=== PATIENT | female | born 1945 | race Caucasian/White ===

== ENCOUNTER 2022-10-08 12:45 | Inpatient (IN) | payer MEDICARE ==
[~2022-10-08 12:45] MED LIST: LIDOCAINE 1% INJ 10MG/ML (5 ML VIAL-PF) SQ ONE; MIDAZOLAM 2 MG/2 ML VIAL IVP ONE; fentaNYL (PF) 50 MCG/1 ML VIAL IVP ONE
[2022-10-08] MEDS ORDERED: NITROGLYCERIN OINT 1 INCH/GM PACKET TOPICAL STA (13:04)
[2022-10-08] MEDS ORDERED: ASPIRIN 81 MG PO STA (13:04)
--- NOTE | 2022-10-08 13:11 | ED ---
General Adult HPI - General Chief complaint: Chest Pain Stated complaint: Chest pain Time Seen by Provider: 10/08/22 12:50 Source: patient, EMS, RN notes reviewed Mode of arrival: EMS Limitations: no limitations - History of Present Illness Initial comments: Patient is a pleasant 76-year-old female presenting to the emergency department concerns for chest discomfort. Onset of symptoms was this morning. Patient had indigestion feeling in her chest without radiation. No associated dyspnea, nausea, or diaphoresis. Patient was seen at the primary care physician and sent to the ER. No history of similar symptoms previously. - Related Data Home Medications Medication Instructions Recorded Confirmed Levothyroxine Sodium [Synthroid] 112 mcg PO HS 12/24/14 04/04/15 Oxybutynin Xl [Ditropan Xl] 10 mg PO QAM 12/24/14 04/04/15 hydroCHLOROthiazide [Hydrodiuril] 25 mg PO DAILY 12/24/14 04/02/15 Cholecalciferol [Vitamin D3] 1,000 units PO QAM 04/02/15 04/02/15 L.acidoph,Paracasei, B.lactis 1 each PO BID 04/02/15 04/02/15 [Probiotic] Sertraline HCl 100 mg PO BID 04/02/15 04/04/15 Previous Rx's Medication Instructions Recorded Ibuprofen [Motrin] 600 mg PO Q6HR PRN #30 tab 12/24/14 Allergies Allergy/AdvReac Type Severity Reaction Status Date / Time fluoxetine HCl [From Prozac] Allergy Severe headache Verified 04/02/15 09:57 dust Allergy Itching Uncoded 04/02/15 09:57 Review of Systems ROS Statement: Those systems with pertinent positive or pertinent negative responses have been documented in the HPI. ROS Other: All systems not noted in ROS Statement are negative. Constitutional: Denies: fever Eyes: Denies: eye pain ENT: Denies: ear pain Respiratory: Denies: dyspnea Cardiovascular: Reports: as per HPI, chest pain Endocrine: Denies: fatigue Musculoskeletal: Denies: back pain Past Medical History Past Medical History: Hyperlipidemia, Hypertension, Thyroid Disorder Additional Past Medical History / Comment(s): MIGRAINES History of Any Multi-Drug Resistant Organisms: None Reported Past Surgical History: Hysterectomy, Orthopedic Surgery Past Psychological History: No Psychological Hx Reported Smoking Status: Former smoker Past Alcohol Use History: Occasional, Rare Past Drug Use History: None Reported General Exam Limitations: no limitations General appearance: alert, in no apparent distress Head exam: Present: normocephalic Eye exam: Present: normal appearance Neck exam: Present: normal inspection Respiratory exam: Present: normal lung sounds bilaterally. Absent: chest wall tenderness Cardiovascular Exam: Present: bradycardia, normal heart sounds Expanded Peripheral pulses: 2+: Radial (R), Radial (L), Dorsalis Pedis (R), Dorsalis Pedis (L) GI/Abdominal exam: Present: soft. Absent: tenderness Extremities exam: Present: normal inspection. Absent: pedal edema, calf tender ness Neurological exam: Present: alert Psychiatric exam: Present: normal affect, normal mood Skin exam: Present: normal color Course Vital Signs 10/08/22 12:50 Temperature 97.1 F L Pulse Rate 49 L Respiratory 20 Rate Blood Pressure 139/63 O2 Sat by Pulse 100 Oximetry EKG Findings - EKG Results: EKG: interpreted by ERMD (Inferior lateral T wave inversion), sinus rhythm, normal axis, normal QRS EKG shows: bradycardia Medical Decision Making - Medical Decision Making Was pt. sent in by a medical professional or institution (, PA, MACHINE INSPECTOR, urgent care, hospital, or penitentiary...) When possible be specific @ -No Did you speak to anyone other than the patient for history (EMS, parent, family, police, friend...)? What history was obtained from this source @ -No Did you review nursing and triage notes (agree or disagree)? Why? @ -I reviewed and agree with nursing and triage notes Were old charts reviewed (outside hosp., previous admission, EMS record, old EKG, old radiological studies, urgent care reports/EKG's, penitentiary records)? Report findings @ -No old charts were reviewed Differential Diagnosis (chest pain, altered mental status, abdominal pain women, abdominal pain men, vaginal bleeding, weakness, fever, dyspnea, syncope, headache, dizziness, GI bleed, back pain, seizure, CVA, palpatations, mental health, musculoskeletal)? @ -Differential Chest Pain: Stable Angina, Unstable Angina, STEMI, NSTEMI Aortic Dissection, Pneumothorax, Musculoskeletal, Esophageal Spasm GERD, Cholecystitis, Pancreatitis, Zoster, this is not meant to be an all-inclusive list. EKG interpreted by me (3pts min.). @ -As above X-rays interpreted by me (1pt min.). @ -Chest x-ray shows no acute process CT interpreted by me (1pt min.). @ -None done U/S interpreted by me (1pt. min.). @ -None done What testing was considered but not performed or refused? (CT, X-rays, U/S, labs)? Why? @ -None What meds were considered but not given or refused? Why? @ -None Did you discuss the management of the patient with other professionals (professionals i.e. , PA, MACHINE INSPECTOR, lab, RT, psych nurse, child welfare social worker, community relations director, teacher, anti air warfare operations officer, manager rn case)? Give summary @ -Case was discussed with Dr. Valerio who will admit covering Dr. Hatifeld Was smoking cessation discussed for >3mins.? @ -No Was critical care preformed (if so, how long)? @ -31 minutes critical care Were there social determinants of health that impacted care today? How? (Homelessness, low income, unemployed, alcoholism, drug addiction, transportation, low edu. Level, literacy, decrease access to med. care, detention, rehab)? @ -No Was there de-escalation of care discussed even if they declined (Discuss DNR or withdrawal of care, Hospice)? DNR status @ -No What co-morbidities impacted this encounter? (DM, HTN, Smoking, COPD, CAD, Cancer, CVA, ARF, Chemo, Hep., AIDS, mental health diagnosis, sleep apnea, morbid obesity)? @ -None Was patient admitted / discharged? Hospital course, mention meds given and route, prescriptions, significant lab abnormalities, going to OR and other pertinent info. @ -Patient reevaluated and resting comfortably in bed. Patient is updated on results and plan. Patient does have chest discomfort with EKG changes and mild elevation of troponin. Patient will be admitted with heparin and cardiac consult . Admission orders written. Undiagnosed new problem with uncertain prognosis? @ -No Drug Therapy requiring intensive monitoring for toxicity (Heparin, Nitro, In sulin, Cardizem)? @ -No Were any procedures done? @ -No Diagnosis/symptom? @ nstemi Acute, or Chronic, or Acute on Chronic? @ acute ] Uncomplicated (without systemic symptoms) or Complicated (systemic symptoms)? @ -default Side effects of treatment? @ -No Exacerbation, Progression, or Severe Exacerbation? @ -No Poses a threat to life or bodily function? How? (Chest pain, [place], [place], pneumonia, PE, COPD, DKA, ARF, appy, cholecystitis, CVA, Diverticulitis, Homicidal, Suicidal, threat to staff... and all critical care pts) @ -Myocardial infarction does pose a threat to life and heart function - Lab Data Result diagrams: 10/08/22 13:13 10/08/22 13:13 Lab Results 10/08/22 10/08/22 10/08/22 Range/Units 13:13 13:13 13:13 WBC 6.2 (3.8-10.6) k/uL RBC 4.17 (3.80-5.40) m/uL Hgb 13.4 (11.4-16.0) gm/dL Hct 38.8 (34.0-46.0) % MCV 93.0 (80.0-100.0) fL MCH 32.2 (25.0-35.0) pg MCHC 34.6 (31.0-37.0) g/dL RDW 12.7 (11.5-15.5) % Plt Count 131 L (150-450) k/uL MPV 8.4 Neutrophils % 60 % Lymphocytes % 26 % Monocytes % 5 % Eosinophils % 7 % Basophils % 1 % Neutrophils # 3.7 (1.3-7.7) k/uL Lymphocytes # 1.6 (1.0-4.8) k/uL Monocytes # 0.3 (0-1.0) k/uL Eosinophils # 0.4 (0-0.7) k/uL Basophils # 0.0 (0-0.2) k/uL PT 10.4 (9.0-12.0) sec INR 1.0 (<1.2) APTT 20.9 L (22.0-30.0) sec Sodium 137 (137-145) mmol/L Potassium 4.8 (3.5-5.1) mmol/L Chloride 105 (98-107) mmol/L Carbon Dioxide 26 (22-30) mmol/L Anion Gap 6 mmol/L BUN 27 H (7-17) mg/dL Creatinine 0.79 (0.52-1.04) mg/dL Est GFR (CKD-EPI)AfAm 85 (>60 ml/min/1.73 sqM) Est GFR (CKD-EPI)NonAf 74 (>60 ml/min/1.73 sqM) Glucose 101 H (74-99) mg/dL Calcium 9.5 (8.4-10.2) mg/dL Magnesium 2.0 (1.6-2.3) mg/dL Total Bilirubin 0.6 (0.2-1.3) mg/dL AST 43 H (14-36) U/L ALT 45 H (4-34) U/L Alkaline Phosphatase 82 (38-126) U/L Troponin I (0.000-0.034) ng/mL Total Protein 7.9 (6.3-8.2) g/dL Albumin 4.2 (3.5-5.0) g/dL Lipase 39 (23-300) U/L 10/08/22 Range/Units 13:13 WBC (3.8-10.6) k/uL RBC (3.80-5.40) m/uL Hgb (11.4-16.0) gm/dL Hct (34.0-46.0) % MCV (80.0-100.0) fL MCH (25.0-35.0) pg MCHC (31.0-37.0) g/dL RDW (11.5-15.5) % Plt Count (150-450) k/uL MPV Neutrophils % % Lymphocytes % % Monocytes % % Eosinophils % % Basophils % % Neutrophils # (1.3-7.7) k/uL Lymphocytes # (1.0-4.8) k/uL Monocytes # (0-1.0) k/uL Eosinophils # (0-0.7) k/uL Basophils # (0-0.2) k/uL PT (9.0-12.0) sec INR (<1.2) APTT (22.0-30.0) sec Sodium (137-145) mmol/L Potassium (3.5-5.1) mmol/L Chloride (98-107) mmol/L Carbon Dioxide (22-30) mmol/L Anion Gap mmol/L BUN (7-17) mg/dL Creatinine (0.52-1.04) mg/dL Est GFR (CKD-EPI)AfAm (>60 ml/min/1.73 sqM) Est GFR (CKD-EPI)NonAf (>60 ml/min/1.73 sqM) Glucose (74-99) mg/dL Calcium (8.4-10.2) mg/dL Magnesium (1.6-2.3) mg/dL Total Bilirubin (0.2-1.3) mg/dL AST (14-36) U/L ALT (4-34) U/L Alkaline Phosphatase (38-126) U/L Troponin I 0.077 H* (0.000-0.034) ng/mL Total Protein (6.3-8.2) g/dL Albumin (3.5-5.0) g/dL Lipase (23-300) U/L Critical Care Time Critical Care Time: Yes Total Critical Care Time: 31 Disposition Clinical Impression: Acute non-ST elevation myocardial infarction (NSTEMI) Disposition: ADMITTED IP TO THIS [facility] Is patient prescribed a controlled substance at d/c from ED?: No Referrals: None,Stated [REFERRING] - 1-2 days Time of Disposition: 14:44
[2022-10-08 13:33] LABS: Basophils % (A) 1 %; Eosinophils # (A) 0.4 k/uL (0-0.7); Eosinophils % (A) 7 %; HCT 38.8 % (34.0-46.0); HGB 13.4 gm/dL (11.4-16.0); Lymphocytes # (A) 1.6 k/uL (1.0-4.8); Lymphocytes % (A) 26 %; MCH 32.2 pg (25.0-35.0); MCHC 34.6 g/dL (31.0-37.0); Mean Platelet Volume 8.4; Monocytes # (A) 0.3 k/uL (0-1.0); Monocytes % (A) 5 %; Neutrophils # (A) 3.7 k/uL (1.3-7.7); Neutrophils % (A) 60 %; Platelet Count 131 k/uL (150-450); RBC 4.17 m/uL (3.80-5.40); RDW 12.7 % (11.5-15.5); WBC 6.2 k/uL (3.8-10.6)
[2022-10-08 13:44] LABS: Prothrombin Time 10.4 sec (9.0-12.0)
[2022-10-08 13:56] LABS: ALT 45 U/L (4-34); African American GFR (CKD) 85 (>60 ml/min/1.73 sqM); Albumin 4.2 g/dL (3.5-5.0); Anion Gap 6 mmol/L; Blood Urea Nitrogen 27 mg/dL (7-17); Calcium 9.5 mg/dL (8.4-10.2); Carbon Dioxide 26 mmol/L (22-30); Chloride 105 mmol/L (98-107); Glucose 101 mg/dL (74-99); Lipase 39 U/L (23-300); Non-African American GFR(CKD) 74 (>60 ml/min/1.73 sqM); Sodium 137 mmol/L (137-145); Total Bilirubin 0.6 mg/dL (0.2-1.3); Total Protein 7.9 g/dL (6.3-8.2)
[2022-10-08 14:06] LABS: AST 43 U/L (14-36); Alkaline Phosphatase 82 U/L (38-126); Potassium 4.8 mmol/L (3.5-5.1)
--- NOTE | 2022-10-08 14:09 | XR ---
EXAMINATION TYPE: XR chest 2V DATE OF EXAM: 10/08/2022 2:02 PM COMPARISON: None TECHNIQUE: XR chest 2V Frontal and lateral views of the chest. CLINICAL INDICATION:Female, 76 years old with history of Chest Pain; FINDINGS: Lungs/Pleura: There is no evidence of pleural effusion, focal consolidation, or pneumothorax. Pulmonary vascularity: Unremarkable. Heart/mediastinum: Cardiomediastinal silhouette is unremarkable. Atherosclerotic calcifications are seen in the aorta. Musculoskeletal: No acute osseous pathology. Mild multilevel degenerative changes of the thoracic spi ne. IMPRESSION: No acute cardiopulmonary disease/process.
[2022-10-08 14:13] LABS: Partial Thromboplastin Time 20.9 sec (22.0-30.0)
[2022-10-08] MEDS ORDERED: NITROGLYCERIN SL TABS 0.4 MG TAB SUBLINGUAL PRN ×2 (14:45→19:49)
[2022-10-08] MEDS ORDERED: HEPARIN SOD,PORK IN 0.45% NACL 25,000 UNIT in 0.45% NACL 1 250ML.BAG IV SCH (14:45)
[2022-10-08] MEDS ORDERED: HEPARIN SODIUM 1,000 UN/ML (10ML VL) IV ONE (14:45)
[2022-10-08] MEDS ORDERED: HEPARIN SODIUM 1,000 UN/ML (10ML VL) ONE (18:45)
[2022-10-08] MEDS ORDERED: fentaNYL (PF) 50 MCG/ML 2 ML AMP ONE (18:45)
[2022-10-08] MEDS ORDERED: ATORVASTATIN 40 MG TAB PO STA (18:46)
[2022-10-08] MEDS ORDERED: LIDOCAINE 1% INJ 10MG/ML (20 ML MDV) ONE (18:51)
[2022-10-08] MEDS ORDERED: VERAPAMIL SYRINGE (5 MG/10 ML) INTRAARTER ONE (18:55)
[2022-10-08] MEDS ORDERED: SODIUM CHLORIDE 0.9% 1,000 ML IV ONE (18:56)
[2022-10-08] MEDS: HEPARIN SODIUM 1,000 UN/ML (10ML VL) IV ONE ×2 (18:59→19:13)
[2022-10-08] MEDS ORDERED: CLOPIDOGREL 75 MG TAB ONE (19:13)
[2022-10-08] MEDS ORDERED: CLOPIDOGREL 75 MG TAB PO ONE (19:18)
[2022-10-08] MEDS ORDERED: NITROGLYCERIN 1000MCG/10ML SYRINGE INTRACORON ONE (19:25)
[2022-10-08] MEDS ORDERED: MAG HYDROX/AL HYDROX/SIMETH 30 ML CUP PO PRN (19:49)
[2022-10-08] MEDS ORDERED: ATROPINE SULFATE 0.1 MG/ML 10ML SYRINGE IV PRN (19:49)
[2022-10-08] MEDS ORDERED: ZOLPIDEM 5 MG TAB PO PRN (19:49)
[2022-10-08] MEDS ORDERED: RX INFO: IV CONTRAST WAS GIVEN 1 EACH MISC MISCELLANE PRN (19:49)
--- NOTE | 2022-10-08 19:49 | P.PCN ---
Date of Procedure: 10/08/22 Operative Findings: PERCUTANEOUS CORONARY INTERVENTION Performing physician Nabeel Lynn M.D. Procedure Performed: 1. Successful stenting of the distal RCA using 3.0 x 15 mm Xience drug-eluting stent with an excellent angiographic results. 2. iFR of the left anterior descending artery and that came in to be nonischemic/normal flow limiting Indication: Chest discomfort concerning for angina 76-year-old female patient who was seen by Dr. Isaac and underwent a heart catheterization and that revealed critical disease involving the distal RCA with intermediate to severe disease involving the mid LAD. Approach: Right radial artery Complications: None Level of Sedation: Moderate with a sedation length of 32 minutes Procedure Discussion: After diagnostic heart catheterization was performed that revealed critical disease involving the RCA and intermediate severe disease involving the LAD with decided to proceed with intervention on the RCA first. Anticoagulation was initiated using heparin and continuous SVT monitoring. Subsequently attempted engaging the RCA using 2.75 guiding catheter was unsuccessful. Subsequently I was able to engage the RCA using a JR4 guiding catheter. It using a run-through wire. Subsequently predilatation was performed using 2.5 mm balloon deployed 3.0 x 15 mm stent where the stent was positioned under fluoroscopy guidance and deployed under fluoroscopy guidance. It was postdilated using 3.5 mm noncompliant balloon was Angiogram showing excellent angiographic results was ARANZA-3 flow and the procedure was completed was no complication. After that I decided to pursue with an FFR of the LAD. After resuming equalizing between the Doppler wire and guiding cath which was JL 3.5 guiding catheter and after that I did engage the left main and wire the LAD. After that I did perform iFR of the LAD and that came in to be nonischemic and 0.91 and 0.92 and 0.93. At that point I decided to stop. Postprocedure Management: 1. Dual antiplatelet therapy including aspirin and Plavix for at least 6 month 2. Aggressive cholesterol control 3. Risk factors modification
[2022-10-08] MEDS ORDERED: IOPAMIDOL-370 100ML BTL INJ ONE (20:00)
[2022-10-08] MEDS ORDERED: SODIUM CHLORIDE 0.9% 1,000 ML in EMPTY BAG 1 BAG IV SCH (20:00)
[2022-10-08] MEDS: NITROGLYCERIN OINT 1 INCH/GM PACKET TOPICAL SCH ×2 (20:13→23:14)
[2022-10-08] MEDS: ATORVASTATIN 80 MG TAB PO SCH (20:33)
[2022-10-08] MEDS ORDERED: LEVOTHYROXINE 112 MCG TAB PO SCH (21:00)
--- NOTE | 2022-10-08 22:17 | CONS ---
CONSULTATION HISTORY OF PRESENT ILLNESS: A 76-year-old lady with history of hypertension, dyslipidemia, who has seen Dr. Ruffin in the past, comes into hospital with symptoms of chest pain. She has had chest pressure that she describes as a burning sensation and heartburn in the left pericardial area with radiation to left arm, was seen by her primary care physician where an EKG showed sinus bradycardia with anterolateral ST-T wave changes of ischemia. The first set of troponin is slightly elevated. Subsequent troponin came back further elevated and the EKG changes have worsened somewhat compared to where they were. Her chest discomfort has improved, but given the EKG changes and the elevated troponin, I advised her to undergo cardiac catheterization for further evaluation. I have explained the risks, benefits, and alternatives. She understood and accepted. PAST MEDICAL HISTORY: Negative for coronary artery disease or congestive heart failure. MEDICATIONS: As charted. ALLERGIES: None. FAMILY HISTORY: Negative for premature coronary artery disease. SOCIAL HISTORY: Negative for current smoking, EtOH abuse, or drug abuse. REVIEW OF SYSTEMS: 14 out of 14 review of systems has been performed. Pertinents are as documented. PHYSICAL EXAMINATION: GENERAL: Comfortable at rest. VITAL SIGNS: Heart rate is 50 beats per minute, blood pressure 130/72, respiratory rate of 18. NECK: There is no jugular venous distention. Carotid upstroke is normal. There is no bruit. CHEST: Reveals good air entry bilaterally. HEART: Reveals first and second heart sounds. No gallop. No murmur. ABDOMEN: Soft, nontender. EXTREMITIES: Did not reveal edema. Peripheral pulses are felt. LABORATORY DATA: Creatinine is normal. Hemoglobin is normal. ASSESSMENT: Acute lju-RB-wnbznth elevation myocardial infarction. PLAN: I advised the patient to undergo urgent cardiac catheterization for further evaluation and treatment. MMODL / IJN: [id number] /
--- NOTE | 2022-10-08 22:41 | CC ---
CARDIAC CATHETERIZATION REPORT INDICATION: Acute wiu-EV-xoowfpk elevation [place]. PROCEDURE NOTE: After obtaining informed consent, left heart catheterization and coronary angiogram were performed via right radial artery using standard Cirilo catheters. The patient tolerated the procedure well without any obvious immediate complications. Right radial artery access was obtained using Seldinger technique. A 6-Marshallese sheath was placed. Catheters and wires were floated into the ascending aorta under fluoroscopic guidance. The patient received moderate conscious sedation. Total sedation time was 25 minutes. The patient received verapamil and heparin per protocol. FINDINGS: 1. HEMODYNAMICS: Left ventricular end-diastolic pressure is 24 mmHg. There is no significant gradient across the aortic valve. 2. LEFT VENTRICULOGRAM: Left ventriculogram is not performed. 3. ANGIOGRAPHIC DATA: a.Right coronary artery: Right coronary artery is a large dominant vessel that shows a focal 95% stenosis in the distal RCA. b.Left main coronary artery appears calcified, but is free of significant stenosis. Divides into left anterior descending coronary artery and circumflex coronary artery. c.Circumflex coronary artery is a nondominant vessel and is free of significant stenosis. d.The LAD shows 70% focal stenosis in the midportion. Vessel is calcified. CONCLUSION: Two-vessel coronary artery disease with a focal 95% stenosis involving distal RCA and a 70% stenosis involving mid LAD. PLAN: Dr. Lynn, the on-call glass melt operator, will proceed with angioplasty of the right coronary artery with or without angioplasty of LAD. MMODL / IJN: [id number] /
[2022-10-09 02:17] LABS: Chol/HDL Ratio 2.94 Ratio; LDL Cholesterol,Calculated 76.7 mg/dL (0.0-131.0)
[2022-10-09 05:02] LABS: HCT 37.3 % (34.0-46.0); HGB 12.6 gm/dL (11.4-16.0); MCH 31.8 pg (25.0-35.0); MCHC 33.9 g/dL (31.0-37.0); MCV 93.9 fL (80.0-100.0); Mean Platelet Volume 8.7; Platelet Count 129 k/uL (150-450); RBC 3.97 m/uL (3.80-5.40); RDW 13.1 % (11.5-15.5); WBC 7.5 k/uL (3.8-10.6)
[2022-10-09 05:16] LABS: ALT 42 U/L (4-34); AST 36 U/L (14-36); African American GFR (CKD) 77 (>60 ml/min/1.73 sqM); Albumin 3.6 g/dL (3.5-5.0); Alkaline Phosphatase 87 U/L (38-126); Anion Gap 6 mmol/L; Blood Urea Nitrogen 22 mg/dL (7-17); Calcium 9.1 mg/dL (8.4-10.2); Carbon Dioxide 28 mmol/L (22-30); Chloride 105 mmol/L (98-107); Glucose 100 mg/dL (74-99); Non-African American GFR(CKD) 67 (>60 ml/min/1.73 sqM); Potassium 4.2 mmol/L (3.5-5.1); Sodium 139 mmol/L (137-145); Total Bilirubin 0.4 mg/dL (0.2-1.3); Total Protein 6.9 g/dL (6.3-8.2)
[2022-10-09] MEDS: LEVOTHYROXINE 75 MCG TAB PO SCH (06:12)
[2022-10-09] MEDS: hydroCHLOROthiazide 25 MG TAB PO SCH (08:13)
[2022-10-09] MEDS: SERTRALINE 100 MG TAB PO SCH (08:14)
[2022-10-09] MEDS: CLOPIDOGREL 75 MG TAB PO SCH (08:14)
[2022-10-09] MEDS: CHOLECALCIFEROL 25 MCG (1000 IU) TABLET PO SCH (08:14)
[2022-10-09] MEDS: ASPIRIN 81 MG PO SCH (08:14)
[2022-10-09] MEDS: OXYBUTYNIN XL 5 MG TAB.ER.24 PO SCH (08:14)
[2022-10-09] MEDS ORDERED: ASPIRIN 325 MG TAB PO SCH (09:00)
[2022-10-09 09:03] LABS: Chol/HDL Ratio 3.36 Ratio; LDL Cholesterol,Calculated 48.9 mg/dL (0.0-131.0)
--- NOTE | 2022-10-09 10:47 | CA ---
Transthoracic Echo Report Name: Humera Thomas Age: 76 Gender: F : 1945 Exam Date: 10/09/2022 07:26 Exam Location: [facility] Ht (in): 63 Wt (lb): 174 Ordering Physician: Stan Vital DO Attending/Referring Phys: Bobbin Coil Winder Leonel Fernandez Procedure CPT: Indications: nstemi Cardiac Hx: Technical Quality: Fair Contrast 1: Total Dose (mL): Contrast 2: Total Dose (mL): MEASUREMENTS (Male / Female) Normal Values 2D ECHO LV Diastolic Diameter PLAX 4.5 cm 4.2 - 5.9 / 3.9 - 5.3 cm LV Systolic Diameter PLAX 3.2 cm IVS Diastolic Thickness 1.2 cm 0.6 - 1.0 / 0.6 - 0.9 cm LVPW Diastolic Thickness 1.1 cm 0.6 - 1.0 / 0.6 - 0.9 cm LV Relative Wall Thickness 0.5 RV Internal Dim ED PLAX 2.6 cm LVOT Diameter 1.9 cm Aortic Root Diameter 2.5 cm LA Systolic Diameter LX 3.0 cm 3.0 - 4.0 / 2.7 - 3.8 cm LV Diastolic Volume MOD BP 43.6 cm??? 67 - 155 / 56 - 104 cm??? LV Systolic Volume MOD BP 16.2 cm??? - 58 / 19 - 49 cm??? LV Ejection Fraction MOD BP 62.9 % >= 55 % LV Cardiac Index MOD BP 750.6 cm???/min???m??? LV Diastolic Volume MOD 4C 44.7 cm??? LV Systolic Volume MOD 4C 18.5 cm??? LV Ejection Fraction MOD 4C 58.7 % LV Cardiac Index MOD 4C 717.7 cm???/min???m??? LV Diastolic Length 4C 5.6 cm LV Systolic Length 4C 5.2 cm LV Diastolic Volume MOD 2C 41.2 cm??? LV Systolic Volume MOD 2C 12.3 cm??? LV Ejection Fraction MOD 2C 70.2 % LV Cardiac Index MOD 2C 791.3 cm???/min???m??? LV Diastolic Length 2C 5.7 cm LV Systolic Length 2C 4.5 cm LA Volume 36.7 cm??? 18 - 58 / 22 - 52 cm??? Ascending Aorta Diameter 3.2 cm DOPPLER AV Peak Velocity 159.5 cm/s AV Peak Gradient 10.2 mmHg LVOT Peak Velocity 119.1 cm/s LVOT Peak Gradient 5.7 mmHg AV Area Cont Eq pk 2.1 cm??? MV Peak Velocity 115.3 cm/s MV Peak Gradient 5.3 mmHg MV Mean Velocity 47.2 cm/s MV Mean Gradient 1.2 mmHg MV Velocity Time Integral 59.5 cm MR Peak Velocity 454.3 cm/s MR Peak Gradient 82.5 mmHg Mitral E Point Velocity 93.4 cm/s Mitral A Point Velocity 92.8 cm/s Mitral E to A Ratio 1.0 MV Deceleration Time 198.6 ms MV E' Velocity 9.3 cm/s Mitral E to MV E' Ratio 10.0 TR Peak Velocity 211.8 cm/s TR Peak Gradient 17.9 mmHg Right Ventricular Systolic Press 23.1 mmHg PV Peak Velocity 102.5 cm/s PV Peak Gradient 4.2 mmHg FINDINGS Left Ventricle Normal LV size and wall thickness. Left ventricular ejection fraction is estimated at 50-55 %. Right Ventricle Normal right ventricular size. Right Atrium Normal right atrial size. Left Atrium Normal left atrial size. Mitral Valve Structurally normal mitral valve. Mild MR. Aortic Valve Mild AV calcifiation. No aortic valve stenosis or regurgitation. Tricuspid Valve Structurally normal tricuspid valve. Mild TR. Pulmonic Valve Structurally normal pulmonic valve. Moderate PI. Pericardium Normal pericardium. Aorta Normal size aortic root and proximal ascending aorta. CONCLUSIONS Normal LV is function Mild mitral regurgitation Previewed by: Dr. Willy Isaac MD (Electronically Signed) Final Date: 09 October 2022 10:46
--- NOTE | 2022-10-09 12:37 | P.PN ---
Subjective Progress Note Date: 10/09/22 History of present illness: This is a 76-year-old female with past history of hypertension dyslipidemia tiffanie Ruffin in the office. Patient presented with chest pain with radiation to the left arm. EKG was sinus bradycardia with anterior lateral ST-T wave changes for ischemia. Patient was diagnosed with acute non-ST elevated myocardial infarction and underwent urgent cardiac catheterization with Dr. Isaac which revealed two-vessel coronary artery disease with 95% stenosis of the distal RCA and 70% stenosis involving the mid LAD. Patient subsequently underwent successful stenting of the RCA performed by Dr. Lynn. iFR of the LAD came back nonischemic. Heart rate is 53, blood pressure 137/65. Repeat blood work reveals hemoglobin 12.6, potassium 4.2, creatinine 0.86. Echocardiogram reveals normal LV function. Mild mitral regurgitation. Physical examination: Gen: This is a 76-year-old female. She is resting in bed and appears to be comfortable and in no acute distress VS: reviewed HEENT: Head is atraumatic, normocephalic. Pupils equal, round. Sclerae is anicteric. LUNGS: Clear to auscultation. No wheezes or rhonchi. No intercostal retractions. HEART: Regular rate and rhythm. EXTREMITIES: No pedal edema. NEUROLOGICAL: Patient is awake, alert and oriented x3. Assessment: Non-ST elevated myocardial infarction Coronary artery disease status post stent of the RCA Hypertension Hyperlipidemia Plan: Continue current cardiac medications. Patient has not been started on beta charmaine due to bradycardia. Patient is cleared for discharge from cardiology may follow-up with Dr. Ruffin in one week. Nurse practitioner note has been reviewed, I agree with documented findings and plan of care. Patient was seen and examined. Objective - Vital Signs Vital signs: Vital Signs Temp 97.4 F L 10/09/22 04:00 Pulse 64 10/09/22 08:00 Resp 16 10/09/22 08:00 BP 137/65 10/09/22 08:00 Pulse Ox 96 10/09/22 08:00 FiO2 Intake & Output 10/08/22 10/09/22 10/09/22 18:59 06:59 18:59 Intake Total 324.94 240 240 Balance 324.94 240 240 Weight 78.925 kg 78.925 kg Intake: IV 300 Intake, IV Titration 24.94 Amount Heparin Sod,Pork in 0.45% 24.94 NaCl 25,000 unit In 0.45 % NaCl 1 250ml.bag @ 12 UNITS/KG/HR 9.471 mls/hr IV .Q24H [facility] Rx#: [id number] Oral 240 240 Other: Voiding Method Toilet # Voids 1 - Labs CBC & Chem 7: 10/09/22 04:38 10/09/22 04:38 Labs: Abnormal Lab Results - Last 24 Hours (Table) 10/08/22 10/08/22 10/08/22 Range/Units 13:13 13:13 13:13 Plt Count 131 L (150-450) k/uL APTT 20.9 L (22.0-30.0) sec BUN 27 H (7-17) mg/dL Glucose 101 H (74-99) mg/dL AST 43 H (14-36) U/L ALT 45 H (4-34) U/L Troponin I (0.000-0.034) ng/mL Triglycerides (0.00-149.00) mg/dL VLDL Cholesterol, Calc (5.00-40.00) mg/dL TSH (0.465-4.680) mIU/L 10/08/22 10/08/22 10/08/22 Range/Units 13:13 14:57 20:36 Plt Count (150-450) k/uL APTT (22.0-30.0) sec BUN (7-17) mg/dL Glucose (74-99) mg/dL AST (14-36) U/L ALT (4-34) U/L Troponin I 0.077 H* 0.125 H* 0.256 H* (0.000-0.034) ng/mL Triglycerides (0.00-149.00) mg/dL VLDL Cholesterol, Calc (5.00-40.00) mg/dL TSH (0.465-4.680) mIU/L 10/08/22 10/09/22 10/09/22 Range/Units 20:36 04:38 04:38 Plt Count 129 L (150-450) k/uL APTT >200.0 H* (22.0-30.0) sec BUN 22 H (7-17) mg/dL Glucose 100 H (74-99) mg/dL AST (14-36) U/L ALT 42 H (4-34) U/L Troponin I (0.000-0.034) ng/mL Triglycerides 268.00 H (0.00-149.00) mg/dL VLDL Cholesterol, Calc 53.60 H (5.00-40.00) mg/dL TSH 0.344 L (0.465-4.680) mIU/L
[2022-10-09 12:56] VITALS: BMI 30.8
--- NOTE | 2022-10-09 13:20 | P.HPIM ---
History of Present Illness H&P Date: 10/08/22 History of present illness; patient is 76-year-old lady with past medical histor y significant for hypothyroidism, hypertension presented to the ER because of chest discomfort that woke up her this morning. Patient stated that she was all right this morning when she started noticing that there was feeling of indigestion in the center of her chest, nonradiating, no aggravating or relieving factors associated with chest pressure. Denies any shortness of breath. Denies any nausea or vomiting. Because of chest pressure, patient went to her PCP sent her to the ER Initial lab work done in the ER showed WBC 6.2, hemoglobin 13.4, platelet count 131, sodium 137, potassium 4.8, BUN 27, creatinine 0.79, troponin 0.077 Chest x-ray done in the ER showed no acute cardiac process She admitted to medicine service REVIEW OF SYSTEMS: CONSTITUTIONAL: No fever, no malaise, no fatigue. HEENT: No recent visual problems or hearing problems. Denied any sore throat. CARDIOVASCULAR as mentioned in HPI PULMONARY: as mentioned in HPI GASTROINTESTINAL: No diarrhea, no nausea, no vomiting, no abdominal pain. NEUROLOGICAL: No headaches, no weakness, no numbness. HEMATOLOGICAL: Denies any bleeding or petechiae. GENITOURINARY: Denies any burning micturition, frequency, or urgency. MUSCULOSKELETAL/RHEUMATOLOGICAL: Denies any joint pain, swelling, or any muscle pain. ENDOCRINE: Denies any polyuria or polydipsia. The rest of the 14-point review of systems is negative. PHYSICAL EXAMINATION: GENERAL: The patient is alert and oriented x3, not in any acute distress. Well developed, well nourished. HEENT: Pupils are round and equally reacting to light. EOMI. No scleral icterus. No conjunctival pallor. Normocephalic, atraumatic. No pharyngeal erythema. No thyromegaly. CARDIOVASCULAR: S1 and S2 present. No murmurs, rubs, or gallops. PULMONARY: Chest is clear to auscultation, no wheezing or crackles. ABDOMEN: Soft, nontender, nondistended, normoactive bowel sounds. No palpable organomegaly. MUSCULOSKELETAL: No joint swelling or deformity. EXTREMITIES: No cyanosis, clubbing, or pedal edema. NEUROLOGICAL: Gross neurological examination did not reveal any focal deficits. SKIN: No rashes. Assessment and plan nSTEMI Hypertension Hypothyroidism Monitor vital signs Monitor CBC Monitor CMP Continue telemetry monitoring Trend troponins. Ordered HbA1c level Ordered lipid panel Continue pharmacy dose heparin Consult cardiology Labs and medication were reviewed.. Continue same treatment. Continue with symptomatic treatment. Resume home medication. Monitor labs and vitals. DVT and GI prophylaxis. Further recommendations as per clinical course of the pat ient Dictation was produced using [employer] dictation software. please excuse any grammatical, word or spelling errors. Past Medical History Past Medical History: Hyperlipidemia, Hypertension, Thyroid Disorder Additional Past Medical History / Comment(s): MIGRAINES History of Any Multi-Drug Resistant Organisms: None Reported Past Surgical History: Hysterectomy, Orthopedic Surgery Past Psychological History: No Psychological Hx Reported Smoking Status: Former smoker Past Alcohol Use History: Occasional, Rare Past Drug Use History: None Reported Medications and Allergies Home Medications Medication Instructions Recorded Confirmed Type Oxybutynin Xl [Ditropan Xl] 5 mg PO DAILY 12/24/14 10/08/22 History Sertraline HCl 200 mg PO DAILY 04/02/15 10/08/22 History Ascorbic Acid [Vitamin C] 1,000 mg PO DAILY 10/08/22 10/08/22 History Biotin 5 mg PO DAILY 10/08/22 10/08/22 History Calcium Carbonate [Calcium] 600 mg PO DAILY 10/08/22 10/08/22 History Cholecalciferol [Vitamin D3 (25 50 mcg PO DAILY 10/08/22 10/08/22 History Mcg = 1000 Iu)] Ezetimibe [Zetia] 10 mg PO HS 10/08/22 10/08/22 History Ginkgo Biloba [place] Extract [Ginkgo 40 mg PO DAILY 10/08/22 10/08/22 History Biloba] Levothyroxine Sodium [Synthroid] 150 mcg PO DAILY 10/08/22 10/08/22 History Vitamin E (Dl,Tocopheryl Acet) 400 unit PO DAILY 10/08/22 10/08/22 History [Vitamin E (400 Iu = 180 mg)] hydroCHLOROthiazide [Hydrodiuril] 25 mg PO DAILY 10/08/22 10/08/22 History lisinopriL [Zestril] 10 mg PO DAILY 10/08/22 10/08/22 History risperiDONE [RisperDAL] 2 mg PO HS 10/08/22 10/08/22 History Aspirin 81 mg PO DAILY tab 10/09/22 Rx Atorvastatin [Lipitor] 80 mg PO HS #90 tab 10/09/22 Rx Clopidogrel [Plavix] 75 mg PO DAILY #90 tab 10/09/22 Rx Nitroglycerin Sl Tabs [Nitrostat] 0.4 mg SUBLINGUAL Q5M PRN #25 tab 10/09/22 Rx Allergies Allergy/AdvReac Type Severity Reaction Status Date / Time fluoxetine HCl [From Prozac] Allergy Severe headache Verified 10/08/22 15:27 dust Allergy Itching Uncoded 04/02/15 09:57 Physical Exam Vitals: Vital Signs Temp Pulse Resp BP Pulse Ox 10/08/22 12:50 97.1 F L 49 L 20 139/63 100 Intake and Output 10/08/22 10/08/22 10/08/22 06:59 14:59 22:59 Other: Weight 78.925 kg Results CBC & Chem 7: 10/09/22 04:38 10/09/22 04:38 Labs: Abnormal Lab Results - Last 24 Hours (Table) 10/08/22 10/08/22 10/08/22 Range/Units 13:13 13:13 13:13 Plt Count 131 L (150-450) k/uL APTT 20.9 L (22.0-30.0) sec BUN 27 H (7-17) mg/dL Glucose 101 H (74-99) mg/dL AST 43 H (14-36) U/L ALT 45 H (4-34) U/L Troponin I (0.000-0.034) ng/mL 10/08/22 Range/Units 13:13 Plt Count (150-450) k/uL APTT (22.0-30.0) sec BUN (7-17) mg/dL Glucose (74-99) mg/dL AST (14-36) U/L ALT (4-34) U/L Troponin I 0.077 H* (0.000-0.034) ng/mL
--- NOTE | 2022-10-09 13:23 | P.PN ---
Subjective Progress Note Date: 10/09/22 patient is 76-year-old lady with past medical history significant for hypothyroidism, hypertension presented to the ER because of chest discomfort that woke up her this morning. Patient stated that she was all right this morning when she started noticing that there was feeling of indigestion in the center of her chest, nonradiating, no aggravating or relieving factors associated with chest pressure. Denies any shortness of breath. Denies any nausea or vomiting. Because of chest pressure, patient went to her PCP sent her to the ER Initial lab work done in the ER showed WBC 6.2, hemoglobin 13.4, platelet count 131, sodium 137, potassium 4.8, BUN 27, creatinine 0.79, troponin 0.077 Chest x-ray done in the ER showed no acute cardiac process She admitted to medicine service 10/09. Patient seen and examined. Cardiac cath done revealed revealed two- vessel coronary artery disease with 95% stenosis of the distal RCA and 70% stenosis involving the mid LAD. Patient subsequently underwent successful stenting of the RCA performed by Dr. Lynn. iFR of the LAD came back nonischemi REVIEW OF SYSTEMS: CONSTITUTIONAL: No fever, no malaise,. CARDIOVASCULAR: No chest pain, no palpitations, no syncope. PULMONARY: No shortness of breath, no cough, GASTROINTESTINAL: No diarrhea, no nausea, no vomiting, no abdominal pain. NEUROLOGICAL: No headaches, no weakness, PHYSICAL EXAMINATION: GENERAL: The patient is alert and oriented x3, not in any acute distress. Well developed, well nourished. HEENT: Pupils are round and equally reacting to light. EOMI. No scleral icterus. No conjunctival pallor. Normocephalic, atraumatic. No pharyngeal erythema. No thyromegaly. CARDIOVASCULAR: S1 and S2 present. No murmurs, rubs, or gallops. PULMONARY: Chest is clear to auscultation, no wheezing or crackles. ABDOMEN: Soft, nontender, nondistended, normoactive bowel sounds. No palpable organomegaly. MUSCULOSKELETAL: No joint swelling or deformity. EXTREMITIES: No cyanosis, clubbing, or pedal edema. NEUROLOGICAL: Gross neurological examination did not reveal any focal deficits. SKIN: No rashes. Assessment and plan Non-ST elevated myocardial infarction Coronary artery disease status post stent of the RCA Hypertension Hyperlipidemia Monitor vital signs Monitor CBC Monitor CMP Continue telemetry monitoring Cardiac cath done revealed revealed two-vessel coronary artery disease with 95% stenosis of the distal RCA and 70% stenosis involving the mid LAD. Patient subsequently underwent successful stenting of the RCA performed by Dr. Lynn. iFR of the LAD came back nonischemi Continue aspirin, Plavix, Lipitor Continue hydrochlorothiazide Cardiology following Labs and medication were reviewed.. Continue same treatment. Continue with symptomatic treatment. Resume home medication. Monitor labs and vitals. DVT and GI prophylaxis. Further recommendations as per clinical course of the patient Dictation was produced using [employer] dictation software. please excuse any grammatical, word or spelling errors. Objective - Vital Signs Vital signs: Vital Signs Temp 97.4 F L 10/09/22 04:00 Pulse 53 L 10/09/22 12:00 Resp 16 10/09/22 12:00 BP 138/67 10/09/22 12:00 Pulse Ox 95 10/09/22 12:00 FiO2 Intake & Output 10/08/22 10/09/22 10/09/22 18:59 06:59 18:59 Intake Total 324.94 240 240 Balance 324.94 240 240 Weight 78.925 kg 78.925 kg 78.925 kg Intake: IV 300 Intake, IV Titration 24.94 Amount Heparin Sod,Pork in 0.45% 24.94 NaCl 25,000 unit In 0.45 % NaCl 1 250ml.bag @ 12 UNITS/KG/HR 9.471 mls/hr IV .Q24H [facility] Rx#: [id number] Oral 240 240 Other: Voiding Method Toilet Toilet # Voids 1 - Labs CBC & Chem 7: 10/09/22 04:38 10/09/22 04:38 Labs: Abnormal Lab Results - Last 24 Hours (Table) 10/08/22 10/08/22 10/08/22 Range/Units 13:13 13:13 13:13 Plt Count 131 L (150-450) k/uL APTT 20.9 L (22.0-30.0) sec BUN 27 H (7-17) mg/dL Glucose 101 H (74-99) mg/dL AST 43 H (14-36) U/L ALT 45 H (4-34) U/L Troponin I (0.000-0.034) ng/mL Triglycerides (0.00-149.00) mg/dL VLDL Cholesterol, Calc (5.00-40.00) mg/dL TSH (0.465-4.680) mIU/L 10/08/22 10/08/22 10/08/22 Range/Units 13:13 14:57 20:36 Plt Count (150-450) k/uL APTT (22.0-30.0) sec BUN (7-17) mg/dL Glucose (74-99) mg/dL AST (14-36) U/L ALT (4-34) U/L Troponin I 0.077 H* 0.125 H* 0.256 H* (0.000-0.034) ng/mL Triglycerides (0.00-149.00) mg/dL VLDL Cholesterol, Calc (5.00-40.00) mg/dL TSH (0.465-4.680) mIU/L 10/08/22 10/09/22 10/09/22 Range/Units 20:36 04:38 04:38 Plt Count 129 L (150-450) k/uL APTT >200.0 H* (22.0-30.0) sec BUN 22 H (7-17) mg/dL Glucose 100 H (74-99) mg/dL AST (14-36) U/L ALT 42 H (4-34) U/L Troponin I (0.000-0.034) ng/mL Triglycerides 268.00 H (0.00-149.00) mg/dL VLDL Cholesterol, Calc 53.60 H (5.00-40.00) mg/dL TSH 0.344 L (0.465-4.680) mIU/L
[2022-10-09] MEDS ORDERED: EZETIMIBE 10 MG TAB PO SCH (21:00)
[2022-10-09] MEDS ORDERED: risperiDONE 1 MG TAB PO SCH (21:00)
[2022-10-09] MEDS: ATORVASTATIN 80 MG TAB PO SCH (21:48)
[2022-10-10] MEDS: LEVOTHYROXINE 75 MCG TAB PO SCH (06:51)
[2022-10-10 07:01] VITALS: PULSE 58
--- NOTE | 2022-10-10 07:40 | P.PN ---
Subjective Progress Note Date: 10/10/22 Principal diagnosis: Acute coronary syndrome The patient is a 76-year-old female patient with hypertension and dyslipidemia who was admitted to the hospital with chest discomfort and continues to have ongoing chest discomfort was mildly elevated troponin. She underwent a heart catheterization and was found to have critical distal RCA and intermediate LAD. She underwent PCI of the RCA and FFR of the LAD which came in to be nonflow limiting On exam she does have stable vital signs with a regular rhythm and clear breathing sounds bilaterally October [id number] The patient was seen and evaluated this morning and she is asymptomatic and hemodynamic be stable. The echo revealed preserved of the systolic function. From the cardiac vascular standpoint of view, the patient can be discharged home on dual antiplatelet therapy along with a statin. She needs to be seen and followed by Dr. Ruffin as an outpatient. Assessment Acute coronary syndrome CAD status post PCI of the RCA Hypertension Dyslipidemia Plan Continue the current medical regimen The patient can be discharged home Objective - Vital Signs Vital signs: Vital Signs Temp 97.8 F 10/10/22 06:00 Pulse 58 L 10/10/22 06:00 Resp 16 10/10/22 06:00 BP 149/74 10/10/22 04:00 Pulse Ox 97 10/10/22 06:00 FiO2 Intake & Output 10/09/22 10/10/22 10/10/22 18:59 06:59 18:59 Intake Total 480 Balance 480 Weight 78.925 kg Intake: Oral 480 Other: Voiding Method Toilet Toilet # Voids 3 # Bowel Movements 1 - Labs CBC & Chem 7: 10/09/22 04:38 10/09/22 04:38 Labs: Abnormal Lab Results - Last 24 Hours (Table) 10/09/22 Range/Units 04:38 Triglycerides 268.00 H (0.00-149.00) mg/dL VLDL Cholesterol, Calc 53.60 H (5.00-40.00) mg/dL
[2022-10-10] MEDS: CLOPIDOGREL 75 MG TAB PO SCH (08:55)
[2022-10-10] MEDS: CHOLECALCIFEROL 25 MCG (1000 IU) TABLET PO SCH (08:55)
[2022-10-10] MEDS: OXYBUTYNIN XL 5 MG TAB.ER.24 PO SCH (08:55)
[2022-10-10] MEDS: hydroCHLOROthiazide 25 MG TAB PO SCH (08:55)
[2022-10-10] MEDS: SERTRALINE 100 MG TAB PO SCH (08:55)
[2022-10-10] MEDS: ASPIRIN 81 MG PO SCH (08:55)
[2022-10-10] MEDS ORDERED: CHOLECALCIFEROL 25 MCG (1000 IU) TABLET PO SCH (09:00)
[2022-10-10 10:18] VITALS: BP 141/68; RESP 18; TEMP 98.6
[2022-10-10 11:31] LABS: Mean Platelet Volume 8.6; Platelet Count 125 k/uL (150-450)
--- NOTE | 2022-10-10 13:37 | P.DS ---
Providers Date of admission: 10/08/22 14:47 Expected date of discharge: 10/10/22 Attending physician: Toy Valerio MD Consults: 10/08/22 14:45 Consult Physician Urgent Consulting Provider: Nabeel Lynn Consult Reason/Comments: nstemi Do you want consulting provider notified?: Yes 10/08/22 19:49 Consult Physician Routine Consulting Provider: [facility] Consult Reason/Comments: Post Interventional patient Do you want consulting provider notified?: Already Contacted Primary care physician: Antonio Hatfield Hospital Course: Discharge diagnoses; Non-ST elevated myocardial infarction Coronary artery disease status post stent of the RCA Hypertension Hyperlipidemia Hospital course; patient is 76-year-old lady with past medical history significant for hypothyroidism, hypertension presented to the ER because of chest discomfort that woke up her this morning. Patient stated that she was all right this morning when she started noticing that there was feeling of indigestion in the center of her chest, nonradiating, no aggravating or relieving factors associated with chest pressure. Denies any shortness of breath. Denies any nausea or vomiting. Because of chest pressure, patient went to her PCP sent her to the ER Initial lab work done in the ER showed WBC 6.2, hemoglobin 13.4, platelet count 131, sodium 137, potassium 4.8, BUN 27, creatinine 0.79, troponin 0.077 Chest x-ray done in the ER showed no acute cardiac process She admitted to medicine service 10/09. Patient seen and examined. Cardiac cath done revealed revealed two- vessel coronary artery disease with 95% stenosis of the distal RCA and 70% stenosis involving the mid LAD. Patient subsequently underwent successful stenting of the RCA performed by Dr. Lynn. iFR of the LAD came back nonischemi 10/10. Patient seen and examined. Being discharged on aspirin, Plavix, Lipitor. Outpatient follow-up with cardiology PHYSICAL EXAMINATION: GENERAL: The patient is alert and oriented x3, not in any acute distress. Well developed, well nourished. HEENT: Pupils are round and equally reacting to light. EOMI. No scleral icterus. No conjunctival pallor. Normocephalic, atraumatic. No pharyngeal erythema. No thyromegaly. CARDIOVASCULAR: S1 and S2 present. No murmurs, rubs, or gallops. PULMONARY: Chest is clear to auscultation, no wheezing or crackles. ABDOMEN: Soft, nontender, nondistended, normoactive bowel sounds. No palpable organomegaly. MUSCULOSKELETAL: No joint swelling or deformity. EXTREMITIES: No cyanosis, clubbing, or pedal edema. NEUROLOGICAL: Gross neurological examination did not reveal any focal deficits. SKIN: No rashes. Dictation was produced using [employer] dictation software. please excuse any grammatical, word or spelling errors. Plan - Discharge Summary Discharge Rx Participant: Yes New Discharge Prescriptions: New Aspirin 81 mg PO DAILY tab Atorvastatin [Lipitor] 80 mg PO HS #90 tab Nitroglycerin Sl Tabs [Nitrostat] 0.4 mg SUBLINGUAL Q5M PRN #25 tab PRN Reason: Chest Pain Clopidogrel [Plavix] 75 mg PO DAILY #90 tab Continue Oxybutynin Xl [Ditropan XL] 5 mg PO DAILY Sertraline HCl 200 mg PO DAILY Ascorbic Acid [Vitamin C] 1,000 mg PO DAILY Biotin 5 mg PO DAILY Cholecalciferol [Vitamin D3 (25 Mcg = 1000 Iu)] 50 mcg PO DAILY Ezetimibe [Zetia] 10 mg PO HS lisinopriL [Zestril] 10 mg PO DAILY risperiDONE [RisperDAL] 2 mg PO HS Vitamin E (Dl,Tocopheryl Acet) [Vitamin E (400 Iu = 180 mg)] 400 unit PO DAILY hydroCHLOROthiazide [Hydrodiuril] 25 mg PO DAILY Calcium Carbonate [Calcium] 600 mg PO DAILY Ginkgo Biloba [place] Extract [Ginkgo Biloba] 40 mg PO DAILY Levothyroxine Sodium [Synthroid] 150 mcg PO DAILY Discontinued Rosuvastatin [Crestor] 20 mg PO HS Discharge Medication List Oxybutynin Xl [Ditropan XL] 5 mg PO DAILY 12/24/14 [History] Sertraline HCl 200 mg PO DAILY 04/02/15 [History] Ascorbic Acid [Vitamin C] 1,000 mg PO DAILY 10/08/22 [History] Biotin 5 mg PO DAILY 10/08/22 [History] Calcium Carbonate [Calcium] 600 mg PO DAILY 10/08/22 [History] Cholecalciferol [Vitamin D3 (25 Mcg = 1000 Iu)] 50 mcg PO DAILY 10/08/22 [History] Ezetimibe [Zetia] 10 mg PO HS 10/08/22 [History] Ginkgo Biloba [place] Extract [Ginkgo Biloba] 40 mg PO DAILY 10/08/22 [History] Levothyroxine Sodium [Synthroid] 150 mcg PO DAILY 10/08/22 [History] Vitamin E (Dl,Tocopheryl Acet) [Vitamin E (400 Iu = 180 mg)] 400 unit PO DAILY 10/08/22 [History] hydroCHLOROthiazide [Hydrodiuril] 25 mg PO DAILY 10/08/22 [History] lisinopriL [Zestril] 10 mg PO DAILY 10/08/22 [History] risperiDONE [RisperDAL] 2 mg PO HS 10/08/22 [History] Aspirin 81 mg PO DAILY tab 10/09/22 [Rx] Atorvastatin [Lipitor] 80 mg PO HS #90 tab 10/09/22 [Rx] Clopidogrel [Plavix] 75 mg PO DAILY #90 tab 10/09/22 [Rx] Nitroglycerin Sl Tabs [Nitrostat] 0.4 mg SUBLINGUAL Q5M PRN #25 tab 10/09/22 [Rx] Follow up Appointment(s)/Referral(s): Shanique Ruffin MD [STAFF PHYSICIAN] - 1 Week None,Stated [REFERRING] - 1-2 days Discharge Disposition: HOME SELF-CARE
== END 2022-10-10 12:55 | disposition home or self-care (01) | DRG 247 ==
LOC: EC 12:45 → 3SCARD 14:47
PROVIDERS: ADMIT Internal Medicine; ATTEND Internal Medicine
PROC: 4A033BC Measurement of Arterial Pressure, Coronary, Percutaneous Approach (ICD-10-PCS; principal; 2022-10-08 18:12)
PROC: 027034Z Dilation of Coronary Artery, One Artery with Drug-eluting Intraluminal Device, Percutaneous Approach (ICD-10-PCS; principal; 2022-10-08 18:12)
PROC: 4A023N7 Measurement of Cardiac Sampling and Pressure, Left Heart, Percutaneous Approach (ICD-10-PCS; 2022-10-08 18:12)
PROC: B2111ZZ Fluoroscopy of Multiple Coronary Arteries using Low Osmolar Contrast (ICD-10-PCS; 2022-10-08 18:12)
DX: I21.4 Non-ST elevation (NSTEMI) myocardial infarction (principal); I25.10 Atherosclerotic heart disease of native coronary artery without angina pectoris; I10 Essential (primary) hypertension; Z79.02 Long term (current) use of antithrombotics/antiplatelets; Z79.82 Long term (current) use of aspirin; Z79.890 Hormone replacement therapy; Z79.899 Other long term (current) drug therapy; E03.9 Hypothyroidism, unspecified; E78.5 Hyperlipidemia, unspecified; G43.909 Migraine, unspecified, not intractable, without status migrainosus; Z28.311 Partially vaccinated for COVID-19; Z28.21 Immunization not carried out because of patient refusal; Z88.8 Allergy status to other drugs, medicaments and biological substances
CPT/HCPCS: 36415; 71046; 80053; 80061; 83036; 83690; 83735; 84439; 84443; 84484; 85025; 85027; 85049; 85610; 85730; 93005; 93306; 93458; 93799

== ENCOUNTER → 2024-04-21 | Day surgery (SDC) | payer MEDICARE ==
[~2024-04-21] MED LIST changes: +ALPRAZolam 0.25 MG TAB PO PRN; +ALPRAZolam 0.5 MG TAB PO PRN; +ASPIRIN 325 MG TAB PO ONE; +ASPIRIN 81 MG PO SCH; +ATORVASTATIN 40 MG TAB PO SCH; +ATORVASTATIN 80 MG TAB PO ONE; +ATROPINE SULFATE 0.1 MG/ML 10ML SYRINGE IV PRN; +CLOPIDOGREL 75 MG TAB PO SCH; +EZETIMIBE 10 MG TAB PO SCH; +HEPARIN SODIUM,PORCINE (1 ML) 2,500 UNIT in SODIUM CHLORIDE 0.9% 250 ML IRRIGATION PRN; +HEPARIN SODIUM,PORCINE 10,000 UNIT in SODIUM CHLORIDE 0.9% 1,000 ML IRRIGATION PRN; -LIDOCAINE 1% INJ 10MG/ML (5 ML VIAL-PF) SQ ONE; +MAG HYDROX/AL HYDROX/SIMETH 30 ML CUP PO PRN; -MIDAZOLAM 2 MG/2 ML VIAL IVP ONE; +NITROGLYCERIN SL TABS 0.4 MG TAB SUBLINGUAL PRN; +RX INFO: IV CONTRAST WAS GIVEN 1 EACH MISC MISCELLANE PRN; +SERTRALINE 100 MG TAB PO SCH; +SODIUM CHLORIDE 0.9% 1,000 ML in EMPTY BAG 1 BAG IV SCH; +ZOLPIDEM 5 MG TAB PO PRN; -fentaNYL (PF) 50 MCG/1 ML VIAL IVP ONE; +lisinopriL 5 MG TAB PO SCH; +risperiDONE 1 MG TAB PO SCH
[2024-04-21] MEDS: SODIUM CHLORIDE 0.9% 1,000 ML in EMPTY BAG 1 BAG IV SCH (06:17)
[2024-04-21] MEDS: IV FLUID CONTINUATION 1,000 ML IV ONE (06:17)
[2024-04-21 06:41] VITALS: TEMP 97.8
[2024-04-21] MEDS: fentaNYL (PF) 50 MCG/ML 2 ML AMP IVP ONE (07:44)
[2024-04-21] MEDS: LIDOCAINE 1% INJ 10MG/ML (20 ML MDV) SQ ONE (07:45)
[2024-04-21] MEDS: HEPARIN SODIUM,PORCINE (1 ML) 2,500 UNIT in SODIUM CHLORIDE 0.9% 250 ML IRRIGATION ONE (07:46)
[2024-04-21] MEDS: HEPARIN SODIUM,PORCINE 10,000 UNIT in SODIUM CHLORIDE 0.9% 1,000 ML IRRIGATION ONE (07:46)
[2024-04-21] MEDS: VERAPAMIL SYRINGE (5 MG/10 ML) INTRAARTER ONE (07:48)
[2024-04-21] MEDS: HEPARIN SODIUM 1,000 UN/ML (10ML VL) IVP ONE ×3 (07:53→08:10)
[2024-04-21] MEDS: CLOPIDOGREL 75 MG TAB PO ONE (08:04)
[2024-04-21] MEDS: IOPAMIDOL-370 100ML BTL INJ ONE (08:34)
--- NOTE | 2024-04-21 08:58 | P.CARDCATH ---
Date of Procedure: 04/21/24 Description of Procedure: Cardiac Catheterization: The patient is a 78-year-old female with known history of CAD, hypertension and hyperlipidemia who has been complaining of exertional shoulder pain and had a positive MPI. Recommendations were made regarding cardiac catheterization, the risks and the complications were discussed with the patient who is in full understanding and agreement. Procedure Description: Patient was brought to cathode maker in fasting semi-sedated state after receiving Fentanyl and Benadryl achieiving moderate conscious sedated state. Using Xylocaine Anesthesia and modified Seldinger technique, a 6-Russian sheath was introduced in the right radial artery . Subsequently, selective coronary angiography was performed using a 5-Russian 3.5 bend Cirilo catheter. Multiple views of the coronary artery including hemiaxial views were obtained. The 4 Russian pigtail catheter was used to cross the aortic valve and LVEDP was calculated. PCI: After removing the catheter a 6 Russian CLS 3.5 guiding catheter was introduced into the system and after cannulating the left main a 0.014 BMW J-wire was positioned in the distal LAD. Subsequently a 2.5 x 12 mm trek balloon was advanced and 1 inflation at 8 bartolo was done. After removing the wire a [employer] [place] eye IVUS catheter was introduced and imaging were obtained and revealed a distal vessel measuring 2.5 to 3.0 mm in diameter and proximally 3.0 to 3.5 mm in diameter without any significant calcifications. After removing the catheter a 2.75 x 18 mm Xience tres point stent was advanced and deployed at 16 bartolo, after removing the balloon repeat IVUS imaging will obtain and revealed good deployment distally with mild under deployment proximally. At that point a 3.25 x 12 mm NC trek balloon was advanced and 1 inflation at 10 bartolo proximally was done. After removing the balloon and the wire images were obtained and revealed stable successful stenting. Following that, catheter and sheath were removed. Hemostasis was obtained with deployment of vascular band . There was no immediate complication. Patient was returned to room in stable condition. Of note, the patient received a total of 8500 units of intravenous heparin as well as intra-arterial verapamil. She received an oral loading dose of clopidogrel. Her ACT was monitored. She has no chest discomfort but she had EKG changes. Findings: Fluoroscopy: Calcification of the LAD proximally and the RCA was noted. Left main: This is a large size vessel, bifurcating into LAD and left circumflex, left main has no obstructive disease LAD: This is a large size vessel, reaching to the apex with a wraparound apex segment giving rise to 2 diagonal branch. At the takeoff of the second diagonal branch there is an eccentric 85 to 90% stenosis, the rest of the vessel has no high-grade stenosis Left circumflex: This is a large nondominant vessel giving rise to 2 obtuse marginal branch, the left circumflex has mild intimal disease of 10 to 20% without high-grade stenosis RCA: This is a large dominant vessel heavily calcified proximal bifurcating distally to PDA and PLV. The proximal RCA has 20 to 30% plaque the stented segment is patent with no evidence of in-stent restenosis. The PLV has about 30 to 40% plaque in the midsegment Left Ventriculogram: Not performed Hemodynamics: There was no gradient across the aortic valve, LVEDP was 12-14 mmHg Conclusion: 1. Calcified coronary arteries 2. Severe stenosis in the mid LAD 3. Patent stent to the RCA 4. Successful stenting of the mid LAD with reduction of the stenosis from 85% to 0% with IVUS imaging and RAANZA-3 flow Recommendations: The patient will continue on aspirin and clopidogrel without any interruption for 6 months in addition to aggressive coronary risks modification, maintaining LDL below 70 mg/dL. The findings and the recommendations were discussed with the patient and the family and they were in full understanding and agreement. Duration of sedation is 42 minutes.
[2024-04-21 16:59] VITALS: BP 174/78; PULSE 46; RESP 14
== END | disposition home or self-care (01) ==
LOC: CATHCVL 05:33
PROVIDERS: ATTEND Internal Medicine Interventional Cardiology
DX: I25.10 Atherosclerotic heart disease of native coronary artery without angina pectoris (principal); I10 Essential (primary) hypertension; E78.5 Hyperlipidemia, unspecified
CPT/HCPCS: 92978; 93458; 99152; 99153; C9600; J1644 ×3; J2003; J3010; Q9967